=== PATIENT | female | born 1985 | race Caucasian/White ===

== ENCOUNTER 2017-09-23 23:50 | Emergency (ER) | payer OTHER ==
[2017-09-23 23:58] VITALS: BP 133/68; TEMP 98.5
[2017-09-24] MEDS ORDERED: IBUPROFEN 600 MG TAB PO STA (00:13)
[2017-09-24] MEDS ORDERED: IPRATROPIUM-ALBUTEROL 3 ML NEB INHALATION STA (00:13)
[2017-09-24] MEDS ORDERED: ACETAMINOPHEN TAB 325 MG TAB PO STA (00:13)
[2017-09-24 00:31] VITALS: RESP 18
--- NOTE | 2017-09-24 00:51 | XR ---
EXAM: XR Chest, 2 Views CLINICAL HISTORY: Reason: Pain TECHNIQUE: Frontal and lateral views of the chest. COMPARISON: No relevant prior studies available. FINDINGS: Lungs: Unremarkable. No consolidation. Pleural space: Unremarkable. No pneumothorax. Heart: Unremarkable. No cardiomegaly. Mediastinum: Unremarkable. Bones/joints: Unremarkable. IMPRESSION: Normal chest x-rays.
[2017-09-24 00:53] VITALS: PULSE 76
--- NOTE | 2017-09-24 00:58 | ED ---
URI HPI - General Chief Complaint: Upper Respiratory Infection Stated Complaint: LASHA, headache Time Seen by Provider: 09/24/17 00:09 Source: patient Mode of arrival: ambulatory Limitations: no limitations - History of Present Illness Initial Comments: 32-year-old female patient presents to the emergency department today for evaluation of nasal congestion, sore throat, and cough that started 2 days ago. Patient states that today she she feels like her cough has worsened, she is experiencing some chest tightness and shortness of breath with this. She states she is coughing up yellow sputum. She is also reporting facial pressure and mild headache. She states that on the first day of her symptoms she did have a temperature of 101.3. She states she has not had a fever since that time. She states that she does smoke 5 cigarettes per day. She denies having the influenza vaccination. She denies any sick contacts. Patient denies any recent rash, chest pain, abdominal pain, nausea, vomiting, diarrhea, constipation, back pain, numbness, tingling, dizziness, weakness, hematuria, dysuria, urinary urgency, urinary frequency, headache, visual changes, or any other complaints. - Related Data Home Medications Medication Instructions Recorded Confirmed Docusate [Colace] 100 mg PO DAILY 09/20/14 09/20/14 Previous Rx's Medication Instructions Recorded Hydrocodone/Acetaminophen [[place] 1 each PO Q6HR PRN #20 tab 09/20/14 5-325] Penicillin V Potassium [Pen Vee K] 500 mg PO TID #40 tab 09/20/14 Albuterol Sulfate [Proair Hfa] 1 - 2 puff INHALATION Q6HR PRN #1 09/24/17 inhaler Allergies Allergy/AdvReac Type Severity Reaction Status Date / Time No Known Allergies Allergy Verified 09/23/17 23:58 Review of Systems ROS Statement: Those systems with pertinent positive or pertinent negative responses have been documented in the HPI. ROS Other: All systems not noted in ROS Statement are negative. Past Medical History Past Medical History: No Reported History Additional Past Medical History / Comment(s): constipation History of Any Multi-Drug Resistant Organisms: None Reported Past Surgical History: No Surgical Hx Reported Past Psychological History: Bipolar, Depression Smoking Status: Current every day smoker Past Alcohol Use History: None Reported Past Drug Use History: None Reported General Exam Limitations: no limitations General appearance: alert, in no apparent distress, other (Is a well-developed, well-nourished adult female patient in no acute distress. Vital signs upon presentation are temperature 98.5F, pulse 95, respirations 20, blood pressure 133/68, pulse ox 100% on room air.) Eye exam: Present: normal appearance, PERRL, EOMI. Absent: scleral icterus, conjunctival injection, periorbital swelling ENT exam: Present: normal exam, mucous membranes moist, TM's normal bilaterally , other (No tonsillar hypertrophy or tonsillar exudate noted.). Absent: normal oropharynx (Oropharyngeal erythema.) Neck exam: Present: normal inspection. Absent: tenderness, meningismus, lymphadenopathy Respiratory exam: Present: normal lung sounds bilaterally, wheezes (Mild expiratory wheeze in the left upper lobe posteriorly.), other (Respirations are even and unlabored. No accessory muscle use. ). Absent: respiratory distress, rales, rhonchi, stridor Cardiovascular Exam: Present: regular rate, normal rhythm, normal heart sounds. Absent: systolic murmur, diastolic murmur, rubs, gallop, clicks Neurological exam: Present: alert, oriented X3, CN II-XII intact Psychiatric exam: Present: normal affect, normal mood Skin exam: Present: warm, dry, intact, normal color. Absent: rash Course Vital Signs 09/23/17 09/24/17 09/24/17 23:54 00:30 00:49 Temperature 98.5 F Pulse Rate 95 76 Respiratory 20 18 Rate Blood Pressure 133/68 O2 Sat by Pulse 100 Oximetry 09/24/17 00:59 Temperature Pulse Rate 76 Respiratory Rate Blood Pressure O2 Sat by Pulse Oximetry Medical Decision Making - Medical Decision Making 32-year-old female patient presented to the emergency department today for complaints of upper respiratory symptoms and cough. Physical examination did reveal mild expiratory wheeze in the left upper lobe posteriorly. Physical exam was otherwise unremarkable. Patient did undergo chest x-ray which was clear and showed no acute cardiopulmonary process. Influenza test was negative. Patient did receive ibuprofen and Tylenol here in the department as well as a DuoNeb breathing treatment. She states that her symptoms are improved. I did give her a ProAir inhaler for home. I did explain to her that her symptoms are most likely viral in nature. She is counseled regarding smoking cessation. She'll be given the next 1-2 days off of work. She is instructed to follow-up with her primary care physician for recheck in 1-2 days. She is instructed to return here immediately for any new, worsening, or concerning symptoms. She verbalizes understanding and agrees with this plan. - Lab Data Lab Results 09/24/17 Range/Units 00:30 Influenza Type A RNA Not Detected (Not Detectd) Influenza Type B (PCR) Not Detected (Not Detectd) - Radiology Data Radiology results: report reviewed, image reviewed Two-view x-ray of the chest shows that the lungs are unremarkable with no consolidation. Pleural spaces unremarkable with no pneumothorax. Heart is unremarkable with no cardiomegaly. Mediastinum is unremarkable and bones and joints are unremarkable. Impression by Dr. Browning shows normal chest x-ray. Disposition Clinical Impression: Viral upper respiratory illness Disposition: HOME SELF-CARE Condition: Good Instructions: Upper Respiratory Infection (ED) Additional Instructions: Increase fluids. Use [id number] nasal decongestants and cough medications as needed. Take ibuprofen or Tylenol as needed for pain control. Follow-up with her primary care physician for recheck in 1-2 days. Return here immediately for any new, worsening, or concerning symptoms. Prescriptions: Albuterol Sulfate [Proair Hfa] 1 - 2 puff INHALATION Q6HR PRN #1 inhaler PRN Reason: Shortness Of Breath Referrals: Grant Fan MD [Primary Care Provider] - 1-2 days Time of Disposition: 01:02
== END 2017-09-24 01:05 | disposition home or self-care (01) ==
LOC: EC 23:50
DX: J06.9 Acute upper respiratory infection, unspecified (principal); R05 Cough; F17.200 Nicotine dependence, unspecified, uncomplicated; Z79.899 Other long term (current) drug therapy
CPT/HCPCS: 71020; 87502; 94640; 99284

== ENCOUNTER 2023-06-11 08:48 | Inpatient (IN) | payer MEDICAID, OTHER ==
--- NOTE | 2023-06-11 09:12 | ED ---
Psych HPI - General Chief Complaint: Psychiatric Symptoms Stated Complaint: mental health Time Seen by Provider: 06/11/23 08:54 Source: patient, RN notes reviewed Mode of arrival: ambulatory Limitations: no limitations - History of Present Illness Initial Comments: 37-year-old female presents emergency department for psychiatric evaluation. Patient states she is depressed, suicidal. Patient does see a counselor at [facility] is on multiple medications for her history. Patient is found with a knife this morning during to harm herself. Patient has meant marijuana use no other illicit drug use denies any alcohol abuse. Patient states she's been taking her medications are not helping her. Patient denies any physical complaints. - Related Data Home Medications Medication Instructions Recorded Confirmed Montelukast [Singulair] 10 mg PO DAILY 06/11/23 06/11/23 Omeprazole [PriLOSEC] 40 mg PO DAILY 06/11/23 06/11/23 QUEtiapine [SEROquel] 25 mg PO DAILY 06/11/23 06/11/23 Denise's Wort 300 mg PO DAILY 06/11/23 06/11/23 Venlafaxine HCl ER [Effexor Xr] 150 mg PO DAILY 06/11/23 06/11/23 busPIRone HCL [Buspirone HCl] 10 mg PO TID 06/11/23 06/11/23 clonazePAM [KlonoPIN] 0.5 mg PO TID PRN 06/11/23 06/11/23 Allergies Allergy/AdvReac Type Severity Reaction Status Date / Time latex Allergy Rash/Hives Verified 06/11/23 13:23 Review of Systems ROS Statement: Those systems with pertinent positive or pertinent negative responses have been documented in the HPI. ROS Other: All systems not noted in ROS Statement are negative. Past Medical History Past Medical History: No Reported History Additional Past Medical History / Comment(s): constipation History of Any Multi-Drug Resistant Organisms: None Reported Past Surgical History: No Surgical Hx Reported Past Psychological History: Bipolar, Depression Smoking Status: Current every day smoker Past Alcohol Use History: None Reported Past Drug Use History: Marijuana General Exam Limitations: no limitations General appearance: alert, in no apparent distress Head exam: Present: atraumatic, normocephalic, normal inspection Eye exam: Present: normal appearance, PERRL, EOMI. Absent: scleral icterus, conjunctival injection, periorbital swelling ENT exam: Present: normal exam, mucous membranes moist Neck exam: Present: normal inspection, full ROM. Absent: tenderness, meningismus, lymphadenopathy Respiratory exam: Present: normal lung sounds bilaterally. Absent: respiratory distress, wheezes, rales, rhonchi, stridor Cardiovascular Exam: Present: regular rate, normal rhythm, normal heart sounds. Absent: systolic murmur, diastolic murmur, rubs, gallop, clicks Neurological exam: Present: alert Psychiatric exam: Present: depressed, flat affect Course Vital Signs 06/11/23 08:48 Temperature 97.9 F Pulse Rate 54 L Respiratory 18 Rate Blood Pressure 135/89 O2 Sat by Pulse 100 Oximetry Medical Decision Making - Medical Decision Making Was pt. sent in by a medical professional or institution (LYDNON Lopez, HEAD CD REACTOR OPERATOR, urgent care, hospital, or halfway...) When possible be specific @ -No Did you speak to anyone other than the patient for history (EMS, parent, family, police, friend...)? What history was obtained from this source @ -No Did you review nursing and triage notes (agree or disagree)? Why? @ -I reviewed and agree with nursing and triage notes Were old charts reviewed (outside hosp., previous admission, EMS record, old EKG, old radiological studies, urgent care reports/EKG's, halfway records)? Report findings @ -No old charts were reviewed Differential Diagnosis (chest pain, altered mental status, abdominal pain women, abdominal pain men, vaginal bleeding, weakness, fever, dyspnea, syncope, headache, dizziness, GI bleed, back pain, seizure, CVA, palpatations, mental health, musculoskeletal)? @ -Depression, suicidal ideation, anxiety EKG interpreted by me (3pts min.). @ -None X-rays interpreted by me (1pt min.). @ -None done CT interpreted by me (1pt min.). @ -None done U/S interpreted by me (1pt. min.). @ -None done What testing was considered but not performed or refused? (CT, X-rays, U/S, labs)? Why? @ -None What meds were considered but not given or refused? Why? @ -None Did you discuss the management of the patient with other professionals (professionals i.e. LYNDON Lopez, HEAD CD REACTOR OPERATOR, lab, RT, psych nurse, psychologist social, account support associate, teacher, deck officer, case operator)? Give summary @ -EPS, psychiatrists evaluated the patient recommend inpatient treatment Was smoking cessation discussed for >3mins.? @ -No Was critical care preformed (if so, how long)? @ -No Were there social determinants of health that impacted care today? How? (Homelessness, low income, unemployed, alcoholism, drug addiction, transportation, low edu. Level, literacy, decrease access to med. care, [facility], rehab)? @ -No Was there de-escalation of care discussed even if they declined (Discuss DNR or withdrawal of care, Hospice)? DNR status @ -No What co-morbidities impacted this encounter? (DM, HTN, Smoking, COPD, CAD, Cancer, CVA, ARF, Chemo, Hep., AIDS, mental health diagnosis, sleep apnea, morbid obesity)? @ -None Was patient admitted / discharged? Hospital course, mention meds given and route, prescriptions, significant lab abnormalities, going to OR and other pertinent info. @ -Admitted to [facility] for psychiatric treatment Undiagnosed new problem with uncertain prognosis? @ -No Drug Therapy requiring intensive monitoring for toxicity (Heparin, Nitro, Insulin, Cardizem)? @ -No Were any procedures done? @ -No Diagnosis/symptom? @ -Depression, suicidal ideation Acute, or Chronic, or Acute on Chronic? @ -Acute Uncomplicated (without systemic symptoms) or Complicated (systemic symptoms)? @ -complicated Side effects of treatment? @ -No Exacerbation, Progression, or Severe Exacerbation? @ -No Poses a threat to life or bodily function? How? (Chest pain, USA, MD, pneumonia, PE, COPD, DKA, ARF, appy, cholecystitis, CVA, Diverticulitis, Homicidal, Suicidal, threat to staff... and all critical care pts) @ -[Yes patient is suicidal - Lab Data Lab Results 06/11/23 06/11/23 Range/Units 10:10 10:40 Urine Opiates Screen Not Detected (NotDetected) Ur Oxycodone Screen Not Detected (NotDetected) Urine Methadone Screen Not Detected (NotDetected) Ur Propoxyphene Screen Not Detected (NotDetected) Ur Barbiturates Screen Not Detected (NotDetected) U Tricyclic Antidepress Not Detected (NotDetected) Ur Phencyclidine Scrn Not Detected (NotDetected) Ur Amphetamines Screen Not Detected (NotDetected) U Methamphetamines Scrn Not Detected (NotDetected) U Benzodiazepines Scrn Not Detected (NotDetected) Urine Cocaine Screen Not Detected (NotDetected) U Marijuana (THC) Screen Detected H (NotDetected) Coronavirus (PCR) Not Detected (Not Detectd) Disposition Clinical Impression: Depression, Suicidal ideation Disposition: TRANSFER TO PSYCH HOSP/UNIT Referrals: Grant Fan MD [Primary Care Provider] - 1-2 days Time of Disposition: 13:02
[2023-06-11 11:11] LABS: Amphetamine Screen,Urine Not Detected (NotDetected); Barbiturate Screen,Urine Not Detected (NotDetected); Benzodiazepines Screen,Urine Not Detected (NotDetected); Cocaine Screen,Urine Not Detected (NotDetected); Methadone Screen, Urine Not Detected (NotDetected); Opiate Screen,Urine Not Detected (NotDetected); Oxycodone Screen, Urine Not Detected (NotDetected); Phencyclidine Screen,Urine Not Detected (NotDetected); Tricyclic Antidepressant,Urine Not Detected (NotDetected); Urn Cannabinoid Scrn Detected (NotDetected)
[2023-06-11] MEDS ORDERED: LORazepam 2 MG/ML INJ IM PRN (14:00)
[2023-06-11] MEDS ORDERED: ACETAMINOPHEN TAB 325 MG TAB PO PRN (14:00)
[2023-06-11] MEDS ORDERED: MAGNESIUM HYDROXIDE 2,400 MG/30 ML CUP PO PRN (14:00)
[2023-06-11] MEDS ORDERED: IBUPROFEN 600 MG TAB PO PRN (14:00)
[2023-06-11] MEDS ORDERED: LORazepam 1 MG TAB PO PRN (14:00)
[2023-06-11] MEDS ORDERED: MAG HYDROX/AL HYDROX/SIMETH 30 ML CUP PO PRN (14:00)
[2023-06-11] MEDS: busPIRone HCl 10 MG TAB PO SCH ×2 (16:36→20:07)
[2023-06-11] MEDS: NICOTINE 14MG/24HR PATCH TRANSDERM SCH (16:37)
--- NOTE | 2023-06-11 18:45 | P.CONS ---
History of Present Illness - Reason for Consult Consult date: 06/11/23 Medical management Requesting physician: Nik Pemberton - Chief Complaint Depressed - History of Present Illness This is a 37-year-old patient off also Dr. Fan. Patient has a known history of depression and anxiety. Alternate has been getting more depressed. Somewhat restless. Does not sleep well. Appetite has gone down. Patient does follow up at [facility]. Patient's front up a knife 100 this morning with some plans to harm himself. She is a smoker does marijuana. Lives with . Has 2 children 5 and 8 years of age. Relationship at home is good. Review of systems: GEN.: Tired EYES: None HEENT: None NECK: None RESPIRATORY: Cough and wheezing CARDIOVASCULAR: None GASTROINTESTINAL: None GENITOURINARY: None MUSCULOSKELETAL: None LYMPHATICS: None HEMATOLOGICAL: None PSYCHIATRY: Anxious NEUROLOGICAL: Trouble sleeping Past medical history to include: Asthma, GERD, thyroid, some constipation, bipolar, schizoaffective disorder. Social history: Lives with . 2 children 5 and 8 years of age. Heavy alcohol use from age of [age]. . Does at least one joint of marijuana a day. Smokes a pack a day. Not employed Physical examination: VITAL SIGNS: 97.1, 63, 16, 150/70, 97% room air GENERAL: BMI 40, declining but awake slightly anxious. EYES: Pupils equal. Conjunctiva normal. HEENT: External appearance of nose and ears normal, oral cavity grossly normal. NECK: JVD not raised; masses not palpable. HEART: First and second heart sounds are normal; no edema. LUNGS: Respiratory rate increased, decreased breath with some wheezing. ABDOMEN: Soft, nontender, liver spleen not palpable, no masses palpable. PSYCH: Alert and oriented x3; mood and affect anxiousl. MUSCULOSKELETAL:No Clubbing/cyanosis;muscles-grossly intact NEUROLOGICAL: Cranial nerves grossly intact; no facial asymmetry, power and sensation grossly intact. LYMPHATICS: No lymph nodes palpable in the axilla and neck INVESTIGATIONS, reviewed in the clinical context: Urine drug screen positive for marijuana COVID-19 PCR: Not detected Assessment and plan: -Bipolar disorder with major depression episode Medications to be further adjusted by psychiatry -Insomnia due to underlying depression and anxiety. Change in medications were held for the same -Chronic nicotine dependence cigarette smoker Nicotine patch 21 -Marijuana use recreational -Morbid obesity BMI 40 Weight loss measures -GERD Prilosec 40 -Asthma exacerbation, secondary to smoking Albuterol 2 puffs 4 times a day. Advair 1 puff daily -Hypothyroid Synthroid 200 g Care was discussed with the patient. Thank you Past Medical History Past Medical History: Asthma, GERD/Reflux, Thyroid Disorder Additional Past Medical History / Comment(s): constipation, hypothyroid, History of Any Multi-Drug Resistant Organisms: None Reported Past Surgical History: No Surgical Hx Reported Additional Past Surgical History / Comment(s): 13 teeth removed in 2018 Past Anesthesia/Blood Transfusion Reactions: No Reported Reaction Past Psychological History: Anxiety, Bipolar, Depression, Panic Disorder, Schizoaffective Disorder Smoking Status: Current every day smoker Past Alcohol Use History: None Reported Additional Past Alcohol Use History / Comment(s): Heavy alcohol use from age 18- 22, reported 2 pints/day. Sober since age 22. Past Drug Use History: Marijuana - Past Family History Father History Unknown: Yes Medications and Allergies Home Medications Medication Instructions Recorded Confirmed Type Albuterol Sulfate [Albuterol 2 puff INHALATION Q6HR PRN 06/11/23 06/11/23 History Sulfate Hfa] Cetirizine HCl [Zyrtec] 10 mg PO DAILY 06/11/23 06/11/23 History Fluticasone Propion/Salmeterol 1 puff INHALATION DAILY 06/11/23 06/11/23 History [Advair 100-50 Diskus] Ibuprofen [Motrin] 800 mg PO Q8H PRN 06/11/23 06/11/23 History Levothyroxine Sodium [Synthroid] 200 mcg PO DAILY 06/11/23 06/11/23 History Montelukast [Singulair] 10 mg PO HS 06/11/23 06/11/23 History Omeprazole [PriLOSEC] 40 mg PO DAILY 06/11/23 06/11/23 History QUEtiapine [SEROquel] 25 mg PO HS 06/11/23 06/11/23 History Denise's Wort 300 mg PO DAILY 06/11/23 06/11/23 History Tiotropium 18 Mcg/Puff [Spiriva] 1 puff INHALATION DAILY 06/11/23 06/11/23 History Venlafaxine HCl ER [Effexor Xr] 150 mg PO DAILY 06/11/23 06/11/23 History busPIRone HCL [Buspirone HCl] 10 mg PO TID 06/11/23 06/11/23 History clonazePAM [KlonoPIN] 0.5 mg PO TID PRN 06/11/23 06/11/23 History Allergies Allergy/AdvReac Type Severity Reaction Status Date / Time latex Allergy Rash/Hives Verified 06/11/23 13:23 Physical Exam Vitals: Vital Signs Temp Pulse Pulse Resp BP BP Pulse Ox 06/11/23 15:03 97.1 F L 63 16 150/70 97 06/11/23 08:48 97.9 F 54 L 18 135/89 100 Intake and Output 06/11/23 06/11/23 06/11/23 06:59 14:59 22:59 Other: Weight 140.16 kg 130 kg Results Labs: Abnormal Lab Results - Last 24 Hours (Table) 06/11/23 Range/Units 10:40 U Marijuana (THC) Screen Detected H (NotDetected)
[2023-06-11] MEDS: QUEtiapine 25 MG TAB PO SCH (20:07)
[2023-06-12] MEDS: MONTELUKAST 10 MG TAB PO SCH (08:52)
[2023-06-12] MEDS: busPIRone HCl 10 MG TAB PO SCH ×3 (08:52→23:11)
[2023-06-12] MEDS: PANTOPRAZOLE 40 MG TABLET PO SCH (08:52)
[2023-06-12] MEDS ORDERED: VENLAFAXINE HCL ER 150 MG CAP PO SCH (09:00)
[2023-06-12 09:34] LABS: ALT 37 U/L (4-34); AST 34 U/L (14-36); African American GFR (CKD) >90 (>60 ml/min/1.73 sqM); Albumin 3.8 g/dL (3.5-5.0); Alkaline Phosphatase 95 U/L (38-126); Anion Gap 7 mmol/L; Blood Urea Nitrogen 5 mg/dL (7-17); Calcium 9.2 mg/dL (8.4-10.2); Carbon Dioxide 29 mmol/L (22-30); Chloride 104 mmol/L (98-107); Glucose 140 mg/dL (74-99); Non-African American GFR(CKD) >90 (>60 ml/min/1.73 sqM); Potassium 4.2 mmol/L (3.5-5.1); Sodium 140 mmol/L (137-145); Total Bilirubin 0.8 mg/dL (0.2-1.3); Total Protein 7.2 g/dL (6.3-8.2)
[2023-06-12] MEDS: NICOTINE 14MG/24HR PATCH TRANSDERM SCH (09:34)
[2023-06-12 09:43] LABS: Basophils % (A) 1 %; Eosinophils # (A) 0.2 k/uL (0-0.7); Eosinophils % (A) 3 %; HCT 46.8 % (34.0-46.0); HGB 15.7 gm/dL (11.4-16.0); Lymphocytes # (A) 2.4 k/uL (1.0-4.8); Lymphocytes % (A) 39 %; MCHC 33.6 g/dL (31.0-37.0); MCV 98.3 fL (80.0-100.0); Mean Platelet Volume 10.5; Monocytes # (A) 0.4 k/uL (0-1.0); Monocytes % (A) 7 %; Neutrophils # (A) 3.1 k/uL (1.3-7.7); Neutrophils % (A) 49 %; Platelet Count 257 k/uL (150-450); RBC 4.76 m/uL (3.80-5.40); RDW 12.4 % (11.5-15.5); WBC 6.3 k/uL (3.8-10.6)
[2023-06-12] MEDS ORDERED: clonazePAM 0.5 MG TAB PO PRN (11:21)
[2023-06-12] MEDS ORDERED: ALBUTEROL HFA INHALER INHALATION PRN (11:21)
[2023-06-12] MEDS ORDERED: LEVOTHYROXINE 100 MCG TAB PO SCH ×2 (11:27→11:30)
[2023-06-12] MEDS: TIOTROPIUM 2.5 MCG INHALER (MHU) INHALATION SCH (12:05)
[2023-06-12] MEDS: LORATADINE 10 MG TAB PO SCH (12:06)
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
[2023-06-12] MEDS ORDERED: predniSONE 20 MG TAB PO STA (14:23)
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
[2023-06-12] MEDS: IPRATROPIUM-ALBUTEROL 3 ML NEB INHALATION SCH ×2 (14:45→20:15)
[2023-06-12 16:02] LABS: Chol/HDL Ratio 4.11 Ratio; LDL Cholesterol,Calculated 78.3 mg/dL (0.0-131.0); VLDL Calculation 19.26 mg/dL (5.00-40.00)
[2023-06-12] MEDS: BUDESONIDE 1 MG/2 ML NEBU INHALATION SCH (20:15)
[2023-06-12] MEDS: QUEtiapine 25 MG TAB PO SCH (23:11)
[2023-06-12] MEDS: traZODone HCL 50 MG TAB PO SCH (23:11)
[2023-06-13] MEDS ORDERED: LEVOTHYROXINE 75 MCG TAB PO SCH ×2 (06:30)
[2023-06-13] MEDS: LEVOTHYROXINE 88 MCG TAB PO SCH (06:38)
[2023-06-13] MEDS: MONTELUKAST 10 MG TAB PO SCH (09:02)
[2023-06-13] MEDS: PANTOPRAZOLE 40 MG TABLET PO SCH (09:02)
[2023-06-13] MEDS: LORATADINE 10 MG TAB PO SCH (09:03)
[2023-06-13] MEDS: VENLAFAXINE HCL ER 75 MG CAP PO SCH (09:03)
[2023-06-13] MEDS: busPIRone HCl 10 MG TAB PO SCH ×3 (09:03→22:56)
[2023-06-13] MEDS: NICOTINE 14MG/24HR PATCH TRANSDERM SCH (09:06)
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
[2023-06-13] MEDS: IPRATROPIUM-ALBUTEROL 3 ML NEB INHALATION SCH ×2 (11:36→12:18)
[2023-06-13] MEDS: BUDESONIDE 1 MG/2 ML NEBU INHALATION SCH (11:37)
[2023-06-13] MEDS: TIOTROPIUM 2.5 MCG INHALER (MHU) INHALATION SCH (11:39)
--- NOTE | 2023-06-13 13:47 | P.PN ---
Progress Note - Text Progress Note Date: 06/13/23 - Chief Complaint Depressed Hospital course This is a 37-year-old patient off also Dr. Fan. Patient has a known history of depression and anxiety. Alternate has been getting more depressed. Somewhat restless. Does not sleep well. Appetite has gone down. Patient does follow up at [facility]. Patient's front up a knife 100 this morning with some plans to harm himself. She is a smoker does marijuana. Lives with . Has 2 children 5 and 8 years of age. Relationship at home is good. 06/12/2023: Patient slept better last night. Still got a cough some wheezing. No bit better. Appetite fair. Less depressed and anxious. Didn't ambulate. 06/13/2023: Patient is given extra bronchodilators and 1 dose of prednisone yesterday for asthma exacerbation. Feeling much better today. Staff felt. Eating better today. We'll much better. Ambulating well. Active Medications Acetaminophen (Acetaminophen Tab 325 Mg Tab) 650 mg PO Q4HR PRN PRN Reason: Mild Pain (Scale 1 to 3) Al Hydroxide/Mg Hydroxide (Mag Hydrox/Al Hydrox/Simeth 30 Ml Cup) 30 ml PO Q4HR PRN PRN Reason: GI Upset Albuterol Sulfate (Albuterol Hfa Inhaler) 2 puff INHALATION RT-Q6H PRN PRN Reason: Shortness Of Breath Buspirone HCl (Buspirone Hcl 10 Mg Tab) 20 mg PO TID [facility] Last Admin: 06/13/23 09:03 Dose: 20 mg Clonazepam (Clonazepam 0.5 Mg Tab) 0.5 mg PO TID PRN PRN Reason: Anxiety Ibuprofen (Ibuprofen 600 Mg Tab) 600 mg PO Q6HR PRN PRN Reason: Moderate Pain (Scale 4 to 6) Levothyroxine Sodium (Levothyroxine 88 Mcg Tab) 176 mcg PO DAILY@0630 [facility] Last Admin: 06/13/23 06:38 Dose: 176 mcg Loratadine (Loratadine 10 Mg Tab) 10 mg PO DAILY [facility] Last Admin: 06/13/23 09:03 Dose: 10 mg Lorazepam (Lorazepam 2 Mg/Ml Inj) 1 mg IM Q6HR PRN PRN Reason: Agitation or Acute Anxiety Magnesium Hydroxide (Magnesium Hydroxide 2,400 Mg/30 Ml Cup) 2,400 mg PO DAILY PRN PRN Reason: Constipation Montelukast Sodium (Montelukast 10 Mg Tab) 10 mg PO DAILY [facility] Last Admin: 06/13/23 09:02 Dose: 10 mg Nicotine (Nicotine 14mg/24hr Patch) 1 patch TRANSDERM DAILY [facility] Last Admin: 06/13/23 09:06 Dose: Not Given Pantoprazole Sodium (Pantoprazole 40 Mg Tablet) 40 mg PO AC-BRKFST [facility] Last Admin: 06/13/23 09:02 Dose: 40 mg Quetiapine Fumarate (Quetiapine 25 Mg Tab) 25 mg PO [facility] Last Admin: 06/12/23 23:11 Dose: 25 mg Tiotropium [place] (Tiotropium 2.5 Mcg Inhaler (Mhu)) 2 puff INHALATION RT- DAILY [facility] Last Admin: 06/13/23 11:39 Dose: 2 puff Trazodone HCl (Trazodone Hcl 50 Mg Tab) 25 mg PO [facility] Last Admin: 06/12/23 23:11 Dose: 25 mg Venlafaxine HCl (Venlafaxine Hcl Er 75 Mg Cap) 225 mg PO DAILY [facility] Last Admin: 06/13/23 09:03 Dose: 225 mg Past medical history to include: Asthma, GERD, thyroid, some constipation, bipolar, schizoaffective disorder. Social history: Lives with . 2 children 5 and 8 years of age. Heavy alcohol use from age of [age]. . Does at least one joint of marijuana a day. Smokes a pack a day. Not employed Physical examination: VITAL SIGNS: 98.1, 79, 15, 129/83, 96% room air GENERAL: Comfortable EYES: Pupils equal. Conjunctiva normal. HEENT: External appearance of nose and ears normal, oral cavity grossly normal. NECK: JVD not raised; masses not palpable. HEART: First and second heart sounds are normal; no edema. LUNGS: Respiratory rate normal, improved air entry ABDOMEN: Soft, nontender, liver spleen not palpable, no masses palpable. PSYCH: Alert and oriented x3; mood and affect better INVESTIGATIONS, reviewed in the clinical context: June 12: White count 6.3 hemoglobin 15.7 platelets 257 potassium 4.2 BUN 5 creatinine 0.6 TSH 0.095 Urine drug screen positive for marijuana COVID-19 PCR: Not detected Assessment and plan: -Depressive disorder unspecified, rule out bipolar depression BuSpar, Klonopin, Ativan, Seroquel, trazodone, Effexor XR -Insomnia due to underlying depression and anxiety. Reproductive change in medications -Chronic nicotine dependence cigarette smoker Nicotine patch 21 -Marijuana use recreational -Morbid obesity BMI 40 Weight loss measures -GERD Prilosec 40 -Acute Asthma exacerbation, secondary to smoking: Better DuoNeb 3 times a day for 24 hours Albuterol 2 puffs 4 times a day. Advair 1 puff daily. 1 dose of prednisone 40 given -Hypothyroid, with low TSH.. Cutback Synthroid to 175 g a day. Doing better. Continue current medications. Thank you
[2023-06-13] MEDS: QUEtiapine 25 MG TAB PO SCH (22:56)
[2023-06-13] MEDS: traZODone HCL 50 MG TAB PO SCH (22:56)
[2023-06-14] MEDS: LEVOTHYROXINE 88 MCG TAB PO SCH (06:19)
[2023-06-14] MEDS: PANTOPRAZOLE 40 MG TABLET PO SCH (08:03)
[2023-06-14] MEDS: TIOTROPIUM 2.5 MCG INHALER (MHU) INHALATION SCH (08:04)
[2023-06-14] MEDS: LORATADINE 10 MG TAB PO SCH (08:04)
[2023-06-14] MEDS: VENLAFAXINE HCL ER 75 MG CAP PO SCH (08:04)
[2023-06-14] MEDS: busPIRone HCl 10 MG TAB PO SCH ×3 (08:04→23:00)
[2023-06-14] MEDS: MONTELUKAST 10 MG TAB PO SCH (08:04)
[2023-06-14] MEDS: NICOTINE 14MG/24HR PATCH TRANSDERM SCH (08:07)
--- NOTE | 2023-06-14 08:54 | P.PN ---
Progress Note - Text Progress Note Date: 06/14/23 Interval history: Patient was seen today taking part in the group today and doing a puzzle with another patient and was agreeable to speak with documentation writer in the office. Patient claims that she is doing a bit better todfay, she states that her mood and anxiety is improving. She claims that the medications have been helping thus far, states that he was able to get about 8 or 9 hours last night of sleep. States that she has bee going to groups and participate and also states that she has been talking to her over the phone. At this time she is denying any changes in her appetite, denying any auditory or visual hallucinations. Denying any suicidal or homicidal ideations intent or plan. Patient has been compliant with medications and not reporting any side effects. Mental status examination: General Appearance: Patient appears to be taller, overweight, several tattoos, short hair, stated age is alert, directable, and attempts to cooperate. Patient appears to have improving hygiene and grooming. Behavior: Patient is seated without any agitated behavior.. Speech: Patient's speech is fluent and nonpressured, improving mildly Mood/Affect: Patient reports their mood is depressed and anxious, improving mildly, affect is congruent Suicidality/Homicidality: Patient denies having any homicidal ideation intent or plan. Denies any suicidal ideations intent or plan Perceptions: Patient denies any visual hallucinations and denies any auditory hallucinations Though content/process: There is no evidence of any delusional thought content and thought process is linear and goal-directed. Memory and concentration: AOX3, grossly intact for the purposes of this session Judgment and insight: Improving mildly IMPRESSIONS: Depressive disorder unspecified, rule out bipolar depression PTSD Cannabis use disorder Nicotine dependence PLAN: -Patient is admitted under voluntary status to MHU for stabilization of psychiatric symptoms and safety. Patient has signed adult voluntary form and medication consent and is placed in patient's chart. -Medications : continue Effexor 225 mg daily for mood/anxiety, continue Seroquel 25 mg daily at bedtime for mood stabilization/insomnia, trazodone 25 mg daily at bedtime for insomnia/mood, BuSpar 20 mg 3 times a day for anxiety. Continue with Klonopin 3 times a day when necessary for anxiety. -Klonopin and Haldol PRN for agitation/aggression -NRT - nicotine patch -SW on board for discharge planning. Encourage patient to participate in groups to work on coping skills. likely discharge back home tomorrow, Sw to call and check for safety in the house, no guns or weapons.
[2023-06-14] MEDS: traZODone HCL 50 MG TAB PO SCH (23:00)
[2023-06-14] MEDS: QUEtiapine 25 MG TAB PO SCH (23:00)
[2023-06-15] MEDS: LEVOTHYROXINE 88 MCG TAB PO SCH (07:00)
[2023-06-15] MEDS: PANTOPRAZOLE 40 MG TABLET PO SCH (08:28)
[2023-06-15] MEDS: LORATADINE 10 MG TAB PO SCH (08:28)
[2023-06-15] MEDS: VENLAFAXINE HCL ER 75 MG CAP PO SCH (08:28)
[2023-06-15] MEDS: busPIRone HCl 10 MG TAB PO SCH (08:28)
[2023-06-15] MEDS: NICOTINE 14MG/24HR PATCH TRANSDERM SCH (08:29)
[2023-06-15] MEDS: MONTELUKAST 10 MG TAB PO SCH (08:29)
[2023-06-15] MEDS: TIOTROPIUM 2.5 MCG INHALER (MHU) INHALATION SCH (08:29)
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
[2023-06-15 10:48] VITALS: BP 116/71; PULSE 102; RESP 16; TEMP 98.4
== END 2023-06-15 12:15 | disposition home or self-care (01) | DRG 754 ==
LOC: EC 08:48 → 3MHU 13:58
PROVIDERS: ADMIT Psychiatry & Neurology Psychiatry; ATTEND Psychiatry & Neurology Psychiatry
DX: F32.A Depression, unspecified (principal); R45.851 Suicidal ideations; Z20.822 Contact with and (suspected) exposure to COVID-19; F17.210 Nicotine dependence, cigarettes, uncomplicated; F41.9 Anxiety disorder, unspecified; R45.1 Restlessness and agitation; J45.909 Unspecified asthma, uncomplicated; K21.9 Gastro-esophageal reflux disease without esophagitis; F25.9 Schizoaffective disorder, unspecified; F51.05 Insomnia due to other mental disorder; E66.01 Morbid (severe) obesity due to excess calories; Z68.41 Body mass index [BMI] 40.0-44.9, adult; J45.901 Unspecified asthma with (acute) exacerbation; E03.9 Hypothyroidism, unspecified; G47.00 Insomnia, unspecified; F43.10 Post-traumatic stress disorder, unspecified; F12.10 Cannabis abuse, uncomplicated; F41.0 Panic disorder [episodic paroxysmal anxiety]; F10.11 Alcohol abuse, in remission; Z79.899 Other long term (current) drug therapy; Z91.040 Latex allergy status; Z56.0 Unemployment, unspecified; Z79.890 Hormone replacement therapy; Z91.410 Personal history of adult physical and sexual abuse; Z91.419 Personal history of unspecified adult abuse
CPT/HCPCS: 80053; 80061; 80306; 82075; 83036; 84443; 85025; 87635; 94640; 99285

== ENCOUNTER 2024-02-15 22:32 | Observation (INO) | payer OTHER ==
--- NOTE | 2024-02-15 22:52 | ED ---
Abdominal Pain HPI - General Chief Complaint: Abdominal Pain Stated Complaint: Abdominal Pain, Gall Stones Time Seen by Provider: 02/15/24 22:39 Source: patient Mode of arrival: ambulatory Limitations: no limitations - History of Present Illness Initial Comments: this patient is a 38-year-old woman who presents to have evaluation for right upper quadrant abdominal pain. The patient states that the symptoms have been going on intermittently approximately 1 month. She notes that symptoms tend to get worse when she eats. Patient went for an ultrasound at [facility] this morning and was told that she had a gallstone. She states the pain has been a little more constant today. She does have associated nausea. She has not noted fever or chills. No change in urination. No change in bowel movements. MD Complaint: abdominal pain Onset/Timin -: month(s) Location: RUQ Radiation: none Migration to: no migration Severity: moderate Quality: aching Consistency: intermittent Improves With: nothing Worsens With: eating Associated Symptoms: nausea - Related Data Home Medications Medication Instructions Recorded Confirmed Cetirizine HCl [Zyrtec] 10 mg PO DAILY 06/11/23 06/11/23 Fluticasone Propion/Salmeterol 1 puff INHALATION DAILY 06/11/23 06/11/23 [Advair 100-50 Diskus] Montelukast [Singulair] 10 mg PO HS 06/11/23 06/11/23 Omeprazole [PriLOSEC] 40 mg PO DAILY 06/11/23 06/11/23 Previous Rx's Medication Instructions Recorded Levothyroxine Sodium [Synthroid] 75 mcg PO DAILY@0630 #30 tab 06/12/23 Levothyroxine Sodium [Synthroid] 100 mcg PO DAILY@0630 #30 tab 06/12/23 Albuterol Sulfate [Albuterol 2 puff INHALATION Q6HR PRN 30 Days 06/15/23 Sulfate Hfa] #1 each Ibuprofen [Motrin] 600 mg PO Q6HR PRN tab 06/15/23 Nicotine 14Mg/24Hr Patch [Habitrol] 1 patch TRANSDERM DAILY 14 Days 06/15/23 #14 patch QUEtiapine [SEROquel] 25 mg PO HS 30 Days #30 tab 06/15/23 Tiotropium 18 Mcg/Puff [Spiriva] 1 puff INHALATION DAILY 30 Days #1 06/15/23 each Venlafaxine HCl [Effexor XR] 225 mg PO DAILY 30 Days #30 tab 06/15/23 busPIRone HCl [Buspar] 20 mg PO TID 30 Days #180 tab 06/15/23 traZODone HCL [Desyrel] 25 mg PO HS 30 Days #15 tab 06/15/23 Allergies Allergy/AdvReac Type Severity Reaction Status Date / Time latex Allergy Rash/Hives Verified 02/15/24 22:35 Review of Systems ROS Statement: Those systems with pertinent positive or pertinent negative responses have been documented in the HPI. ROS Other: All systems not noted in ROS Statement are negative. Constitutional: Denies: fever, chills Respiratory: Denies: cough, dyspnea Cardiovascular: Denies: chest pain, palpitations, edema Gastrointestinal: Reports: abdominal pain, nausea. Denies: vomiting, diarrhea, constipation, melena, hematochezia Genitourinary: Denies: dysuria, frequency, hematuria, abnormal menses Musculoskeletal: Denies: back pain Skin: Denies: rash Neurological: Denies: headache, weakness Past Medical History Past Medical History: Asthma, GERD/Reflux, Thyroid Disorder Additional Past Medical History / Comment(s): constipation, hypothyroid, History of Any Multi-Drug Resistant Organisms: None Reported Past Surgical History: No Surgical Hx Reported Additional Past Surgical History / Comment(s): 13 teeth removed in 2018 Past Anesthesia/Blood Transfusion Reactions: No Reported Reaction Past Psychological History: Anxiety, Bipolar, Depression, Panic Disorder, Schizoaffective Disorder Smoking Status: Current every day smoker Past Alcohol Use History: None Reported Past Drug Use History: Marijuana - Past Family History Father History Unknown: Yes General Exam Limitations: no limitations General appearance: alert, in no apparent distress Head exam: Present: atraumatic, normocephalic Eye exam: Present: normal appearance. Absent: scleral icterus, conjunctival injection ENT exam: Present: normal oropharynx Neck exam: Present: normal inspection Respiratory exam: Present: normal lung sounds bilaterally. Absent: respiratory distress, wheezes, rales, rhonchi, stridor, accessory muscle use Cardiovascular Exam: Present: regular rate, normal rhythm, normal heart sounds. Absent: systolic murmur, diastolic murmur, rubs, gallop GI/Abdominal exam: Present: soft, tenderness. Absent: distended, guarding, rebound, rigid, mass, pulsatile mass Extremities exam: Present: normal inspection, normal capillary refill. Absent: pedal edema, calf tenderness Back exam: Present: normal inspection. Absent: CVA tenderness (R), CVA tenderness (L) Neurological exam: Present: alert Skin exam: Present: warm, dry, intact, normal color. Absent: rash Course Vital Signs 02/15/24 02/15/24 02/16/24 22:33 23:40 00:00 Temperature 97.4 F L Pulse Rate 75 Pulse Rate [ Pulse Oximetery ] Respiratory 18 12 12 Rate Blood Pressure 128/89 Blood Pressure [Supine] O2 Sat by Pulse 98 Oximetry 02/16/24 02/16/24 02/16/24 00:33 02:20 04:32 Temperature 97.6 F 98.3 F Pulse Rate 75 65 69 Pulse Rate [ Pulse Oximetery ] Respiratory 14 24 14 Rate Blood Pressure 112/75 109/70 130/70 Blood Pressure [Supine] O2 Sat by Pulse 95 95 96 Oximetry 02/16/24 04:52 Temperature 97.4 F L Pulse Rate Pulse Rate [ 77 Pulse Oximetery ] Respiratory 20 Rate Blood Pressure Blood Pressure 119/68 [Supine] O2 Sat by Pulse 97 Oximetry Medical Decision Making - Lab Data Result diagrams: 02/15/24 23:07 02/15/24 23:07 Lab Results 02/15/24 02/15/24 02/15/24 Range/Units 23:07 23:07 23:07 WBC 7.8 (3.8-10.6) k/uL RBC 4.29 (3.80-5.40) m/uL Hgb 13.9 (11.4-16.0) gm/dL Hct 41.3 (34.0-46.0) % MCV 96.4 (80.0-100.0) fL MCH 32.4 (25.0-35.0) pg MCHC 33.6 (31.0-37.0) g/dL RDW 12.6 (11.5-15.5) % Plt Count 240 (150-450) k/uL MPV 9.9 Neutrophils % 56 % Lymphocytes % 34 % Monocytes % 7 % Eosinophils % 0 % Basophils % 0 % Neutrophils # 4.4 (1.3-7.7) k/uL Lymphocytes # 2.6 (1.0-4.8) k/uL Monocytes # 0.6 (0-1.0) k/uL Eosinophils # 0.0 (0-0.7) k/uL Basophils # 0.0 (0-0.2) k/uL Sodium 139 (137-145) mmol/L Potassium 4.4 (3.5-5.1) mmol/L Chloride 105 (98-107) mmol/L Carbon Dioxide 31 H (22-30) mmol/L Anion Gap 3 mmol/L BUN 11 (7-17) mg/dL Creatinine 0.67 (0.52-1.04) mg/dL Est GFR (CKD-EPI)AfAm >90 (>60 ml/min/1.73 sqM) Est GFR (CKD-EPI)NonAf >90 (>60 ml/min/1.73 sqM) Glucose 131 H (74-99) mg/dL Plasma Lactic Acid Darren 1.1 (0.7-2.0) mmol/L Calcium 9.0 (8.4-10.2) mg/dL Total Bilirubin 0.5 (0.2-1.3) mg/dL AST 24 (14-36) U/L ALT 29 (4-34) U/L Alkaline Phosphatase 97 (38-126) U/L Total Protein 6.6 (6.3-8.2) g/dL Albumin 3.6 (3.5-5.0) g/dL Amylase 37 (30-110) U/L Lipase 83 (23-300) U/L Urine Color Urine Appearance (Clear) Urine pH (5.0-8.0) Ur Specific [place] (1.001-1.035) Urine Protein (Negative) Urine Glucose (UA) (Negative) Urine Ketones (Negative) Urine Blood (Negative) Urine Nitrite (Negative) Urine Bilirubin (Negative) Urine Urobilinogen (<2.0) mg/dL Ur Leukocyte Esterase (Negative) Urine HCG, Qual (Not Detectd) 02/16/24 02/16/24 Range/Units 00:12 00:12 WBC (3.8-10.6) k/uL RBC (3.80-5.40) m/uL Hgb (11.4-16.0) gm/dL Hct (34.0-46.0) % MCV (80.0-100.0) fL MCH (25.0-35.0) pg MCHC (31.0-37.0) g/dL RDW (11.5-15.5) % Plt Count (150-450) k/uL MPV Neutrophils % % Lymphocytes % % Monocytes % % Eosinophils % % Basophils % % Neutrophils # (1.3-7.7) k/uL Lymphocytes # (1.0-4.8) k/uL Monocytes # (0-1.0) k/uL Eosinophils # (0-0.7) k/uL Basophils # (0-0.2) k/uL Sodium (137-145) mmol/L Potassium (3.5-5.1) mmol/L Chloride (98-107) mmol/L Carbon Dioxide (22-30) mmol/L Anion Gap mmol/L BUN (7-17) mg/dL Creatinine (0.52-1.04) mg/dL Est GFR (CKD-EPI)AfAm (>60 ml/min/1.73 sqM) Est GFR (CKD-EPI)NonAf (>60 ml/min/1.73 sqM) Glucose (74-99) mg/dL Plasma Lactic Acid Darren (0.7-2.0) mmol/L Calcium (8.4-10.2) mg/dL Total Bilirubin (0.2-1.3) mg/dL AST (14-36) U/L ALT (4-34) U/L Alkaline Phosphatase (38-126) U/L Total Protein (6.3-8.2) g/dL Albumin (3.5-5.0) g/dL Amylase (30-110) U/L Lipase (23-300) U/L Urine Color Yellow Urine Appearance Clear (Clear) Urine pH 6.0 (5.0-8.0) Ur Specific [place] 1.026 (1.001-1.035) Urine Protein Negative (Negative) Urine Glucose (UA) Negative (Negative) Urine Ketones Negative (Negative) Urine Blood Negative (Negative) Urine Nitrite Negative (Negative) Urine Bilirubin Negative (Negative) Urine Urobilinogen <2.0 (<2.0) mg/dL Ur Leukocyte Esterase Negative (Negative) Urine HCG, Qual Not Detected (Not Detectd) Disposition Clinical Impression: Abdominal pain, Cholecystitis Disposition: ADMITTED IP TO THIS HOSP Condition: Good Is patient prescribed a controlled substance at d/c from ED?: No
[2024-02-15] MEDS: SODIUM CHLORIDE 0.9% 1,000 ML IV STA (23:04)
[2024-02-15] MEDS: HYDROmorphone 1 MG/ML 1 ML SYRINGE IVP STA (23:12)
[2024-02-15 23:33] LABS: Basophils % (A) 0 %; Eosinophils % (A) 0 %; HCT 41.3 % (34.0-46.0); HGB 13.9 gm/dL (11.4-16.0); Lymphocytes # (A) 2.6 k/uL (1.0-4.8); Lymphocytes % (A) 34 %; MCH 32.4 pg (25.0-35.0); MCHC 33.6 g/dL (31.0-37.0); MCV 96.4 fL (80.0-100.0); Mean Platelet Volume 9.9; Monocytes # (A) 0.6 k/uL (0-1.0); Monocytes % (A) 7 %; Neutrophils # (A) 4.4 k/uL (1.3-7.7); Neutrophils % (A) 56 %; Platelet Count 240 k/uL (150-450); RBC 4.29 m/uL (3.80-5.40); RDW 12.6 % (11.5-15.5); WBC 7.8 k/uL (3.8-10.6)
[2024-02-15 23:54] LABS: ALT 29 U/L (4-34); AST 24 U/L (14-36); African American GFR (CKD) >90 (>60 ml/min/1.73 sqM); Albumin 3.6 g/dL (3.5-5.0); Alkaline Phosphatase 97 U/L (38-126); Amylase 37 U/L (30-110); Anion Gap 3 mmol/L; Blood Urea Nitrogen 11 mg/dL (7-17); Carbon Dioxide 31 mmol/L (22-30); Chloride 105 mmol/L (98-107); Glucose 131 mg/dL (74-99); Lipase 83 U/L (23-300); Non-African American GFR(CKD) >90 (>60 ml/min/1.73 sqM); Potassium 4.4 mmol/L (3.5-5.1); Sodium 139 mmol/L (137-145); Total Bilirubin 0.5 mg/dL (0.2-1.3); Total Protein 6.6 g/dL (6.3-8.2)
[2024-02-16 01:07] LABS: Appearance,Urine Clear (Clear); Bilirubin,Urine Negative (Negative); Blood,Urine Negative (Negative); Color,Urine Yellow; Glucose,Urine (UA) Negative (Negative); Ketones,Urine Negative (Negative); Leukocyte Esterase,Urine Negative (Negative); Nitrite,Urine Negative (Negative); Protein,Urine Negative (Negative); Specific Gravity,Urine 1.026 (1.001-1.035); Urobilinogen,Urine <2.0 mg/dL (<2.0)
--- NOTE | 2024-02-16 01:47 | CT ---
EXAMINATION TYPE: CT abdomen pelvis w con DATE OF EXAM: 02/16/2024 HISTORY: Right upper abdominal pain. Patient states she had a US today of her gallbladder and she has a gallstone CT DLP: 2892.6mGycm Automated Exposure Control for Dose Reduction was Utilized. CONTRAST: CT scan of the abdomen and pelvis is performed with IV Contrast, patient injected with 100 mL of Isov ue 300. COMPARISON: None. FINDINGS: LUNG BASES: No significant abnormality is appreciated. LIVER/GB: Liver is diffusely low dense consistent with fatty infiltrative hepatocellular disease. Sug gestion of some edematous wall thickening in the gallbladder. No biliary dilatation. PANCREAS: No significant abnormality is seen. SPLEEN: No significant abnormality is seen. ADRENALS: No significant abnormality is seen. KIDNEYS: No significant abnormality is seen. BOWEL: No significant abnormality is seen. UTERUS/ADNEXA: No gross abnormality seen. LYMPH NODES: No greater than 1cm abdominal or pelvic lymph nodes are appreciated. OSSEOUS STRUCTURES: Moderate disc space narrowing at L4-L5 and L5-S1 levels. OTHER: No significant additional abnormality is seen. IMPRESSION: Suspect some edematous wall thickening of the gallbladder. Acute cholecystitis needs to b e considered based on CT and patient's symptoms.
[2024-02-16] MEDS ORDERED: NALOXONE 0.4 MG/ML 1 ML VIAL IV PRN (04:05)
[2024-02-16] MEDS ORDERED: HYDROmorphone 0.5 MG/0.5 ML SYRINGE IVP PRN (04:05)
[2024-02-16] MEDS: HYDROmorphone 0.5 MG/0.5 ML SYRINGE IVP STA (04:12)
[2024-02-16] MEDS: SODIUM CHLORIDE 0.9% 1,000 ML IV SCH (04:16)
[2024-02-16] MEDS: PIPERACILLIN-TAZOBACTAM 3.375 GM in SODIUM CHLORIDE 0.9% 100 ML IVPB STA (04:22)
[2024-02-16] MEDS: PANTOPRAZOLE 40 MG/10 ML VIAL IV SCH (09:35)
[2024-02-16] MEDS: PIPERACILLIN-TAZOBACTAM 3.375 GM in SODIUM CHLORIDE 0.9% 100 ML IVPB SCH (12:25)
[2024-02-16] MEDS: LEVOTHYROXINE 88 MCG TAB PO SCH (12:25)
[2024-02-16] MEDS ORDERED: METOPROLOL TARTRATE 5 MG/5 ML VIAL IVP ONE (16:10)
[2024-02-16] MEDS ORDERED: fentaNYL (PF) 50 MCG/ML 2 ML AMP ONE (16:10)
[2024-02-16] MEDS ORDERED: PROPOFOL 10 MG/ML 20 ML VIAL IV ONE (16:10)
[2024-02-16] MEDS ORDERED: SUCCINYLCHOLINE CHLORIDE 200 MG/10 ML VIAL IV ONE (16:10)
[2024-02-16] MEDS ORDERED: hydrALAZINE HCL 20 MG/ML 1 ML VIAL ONE (16:10)
[2024-02-16] MEDS ORDERED: MIDAZOLAM 2 MG/2 ML VIAL ONE (16:10)
[2024-02-16] MEDS ORDERED: ONDANSETRON 4 MG/2 ML VIAL ONE (16:10)
[2024-02-16] MEDS ORDERED: GLYCOPYRROLATE 0.2 MG/ML 2 ML VIAL ONE (16:10)
[2024-02-16] MEDS ORDERED: NEOSTIGMINE 1 MG/ML 10 ML VIAL ONE (16:10)
[2024-02-16] MEDS ORDERED: ROCURONIUM 10 MG/ML (5 ML VIAL) IV ONE (16:10)
[2024-02-16] MEDS ORDERED: LIDOCAINE 1% INJ 10MG/ML (20 ML MDV) ONE (16:10)
[2024-02-16] MEDS: SODIUM CHLORIDE 0.9% 1,000 ML IV ONE (16:10)
[2024-02-16] MEDS: LIDOCAINE 2%-EPI 1:100,000 20 ML VIAL SQ ONE ×2 (16:29→16:41)
[2024-02-16] MEDS: droPERidol 5 MG/2 ML VIAL IVP ONE (18:05)
[2024-02-16] MEDS: LACTATED RINGERS 1,000 ML IV ONE ×2 (18:17→18:46)
--- NOTE | 2024-02-16 18:47 | P.GSHP ---
History of Present Illness H&P Date: 02/16/24 Chief Complaint: abdominal pain patient is a 38-year-old female presenting with several days of abdominal pain that is worse with food and is better on its own. Patient complains of right upper quadrant pain that radiates to the back and shoulder with associated nausea and vomiting. Patient denies fever chills shortness breath or chest pain - EENT Ears, nose, mouth and throat: Denies dysphagia, Denies epistaxis, Denies nasal discharge - Cardiovascular Cardiovascular: Denies chest pain, Denies claudication, Denies dyspnea on exertion - Respiratory Respiratory: Denies congestion, Denies cough, Denies dyspnea - Gastrointestinal Gastrointestinal: Reports as per HPI - Genitourinary (Female) Genitourinary: Reports as per HPI - Musculoskeletal Musculoskeletal: Denies arm numbness/tingling, Denies leg numbness/tingling Past Medical History Past Medical History: Asthma, GERD/Reflux, Thyroid Disorder Additional Past Medical History / Comment(s): constipation, hypothyroid, History of Any Multi-Drug Resistant Organisms: None Reported Past Surgical History: No Surgical Hx Reported Additional Past Surgical History / Comment(s): 13 teeth removed in 2018 Past Anesthesia/Blood Transfusion Reactions: No Reported Reaction Past Psychological History: Anxiety, Bipolar, Depression, Panic Disorder, Schizoaffective Disorder Smoking Status: Current every day smoker Past Alcohol Use History: None Reported Past Drug Use History: Marijuana - Past Family History Father History Unknown: Yes Medications and Allergies Home Medications Medication Instructions Recorded Confirmed Type Cetirizine HCl [Zyrtec] 10 mg PO DAILY 06/11/23 02/16/24 History Montelukast [Singulair] 10 mg PO HS 06/11/23 02/16/24 History Omeprazole [PriLOSEC] 40 mg PO DAILY 06/11/23 02/16/24 History Venlafaxine HCl [Effexor XR] 225 mg PO DAILY 30 Days #30 tab 06/15/23 02/16/24 Rx Albuterol Sulfate [Albuterol 2 puff INHALATION RT-Q6H PRN 02/16/24 02/16/24 History Sulfate Hfa] Fluticasone Nasal [place] [Flonase 1 spr EA NOSTRIL DAILY PRN 02/16/24 02/16/24 History Nasal [place]] Levothyroxine Sodium [Synthroid] 175 mcg PO DAILY 02/16/24 02/16/24 History QUEtiapine [SEROquel] 100 mg PO BID 02/16/24 02/16/24 History busPIRone HCl [Buspar] 10 mg PO BID 02/16/24 02/16/24 History clonazePAM [KlonoPIN] 1 mg PO BID PRN 02/16/24 02/16/24 History traZODone HCL 100 mg PO HS 02/16/24 02/16/24 History Allergies Allergy/AdvReac Type Severity Reaction Status Date / Time latex Allergy Rash/Hives Verified 02/16/24 10:28 Surgical - Exam Osteopathic Statement: *. No significant issues noted on an osteopathic structural exam other than those noted in the History and Physical/Consult. Vital Signs Temp Pulse Resp BP Pulse Ox 97.4 F L 75 18 128/89 98 02/15/24 22:33 02/15/24 22:33 02/15/24 22:33 02/15/24 22:33 02/15/24 22:33 - General well developed - Eyes PERRL - Neck no masses, no lymphadectomy - Respiratory normal expansion - Cardiovascular Rhythm: regular Heart Sounds: normal: S1, S2 - Abdomen Abdomen: soft, tender Results - Labs 02/15/24 23:07 02/15/24 23:07 Abnormal Lab Results - Last 24 Hours (Table) 02/15/24 Range/Units 23:07 Carbon Dioxide 31 H (22-30) mmol/L Glucose 131 H (74-99) mg/dL Diabetes panel 02/15/24 Range/Units 23:07 Sodium 139 (137-145) mmol/L Potassium 4.4 (3.5-5.1) mmol/L Chloride 105 (98-107) mmol/L Carbon Dioxide 31 H (22-30) mmol/L BUN 11 (7-17) mg/dL Creatinine 0.67 (0.52-1.04) mg/dL Glucose 131 H (74-99) mg/dL Calcium 9.0 (8.4-10.2) mg/dL AST 24 (14-36) U/L ALT 29 (4-34) U/L Alkaline Phosphatase 97 (38-126) U/L Total Protein 6.6 (6.3-8.2) g/dL Albumin 3.6 (3.5-5.0) g/dL Calcium panel 02/15/24 Range/Units 23:07 Calcium 9.0 (8.4-10.2) mg/dL Albumin 3.6 (3.5-5.0) g/dL Pituitary panel 02/15/24 Range/Units 23:07 Sodium 139 (137-145) mmol/L Potassium 4.4 (3.5-5.1) mmol/L Chloride 105 (98-107) mmol/L Carbon Dioxide 31 H (22-30) mmol/L BUN 11 (7-17) mg/dL Creatinine 0.67 (0.52-1.04) mg/dL Glucose 131 H (74-99) mg/dL Calcium 9.0 (8.4-10.2) mg/dL Adrenal panel 02/15/24 Range/Units 23:07 Sodium 139 (137-145) mmol/L Potassium 4.4 (3.5-5.1) mmol/L Chloride 105 (98-107) mmol/L Carbon Dioxide 31 H (22-30) mmol/L BUN 11 (7-17) mg/dL Creatinine 0.67 (0.52-1.04) mg/dL Glucose 131 H (74-99) mg/dL Calcium 9.0 (8.4-10.2) mg/dL Total Bilirubin 0.5 (0.2-1.3) mg/dL AST 24 (14-36) U/L ALT 29 (4-34) U/L Alkaline Phosphatase 97 (38-126) U/L Total Protein 6.6 (6.3-8.2) g/dL Albumin 3.6 (3.5-5.0) g/dL Assessment and Plan Assessment: 38 yo female w/ abdominal pain CT/US demonstrates gallstones -npo -OR today -abx -pain meds
--- NOTE | 2024-02-16 19:57 | P.OP ---
Date of Procedure: 02/16/24 Preoperative Diagnosis: acute cholecystitis Postoperative Diagnosis: acute cholecystitis Procedure(s) Performed: robotic-assisted cholecystectomy Surgeon: Severiano Bermudez Estimated Blood Loss (ml): 20 Operative Findings: Edematous inflamed gallbladder Description of Procedure: patient with resident operating room where she was cleaned and draped in sterile fashion atenolol was performed and everyone agreed with the information sided next incision was made in the left lower quadrant and a 5 mm Visiport was then used to gain access the abdomen. 3 more 8 mm ports were placed in the mid and right abdomen and the initial 5 mm port was replaced with an 8 mm port the robot was undocked the gallbladder was identified and lifted up cephalad and retracted laterally I dissected from lateral to medial using electrocautery first identifying the cystic duct and then the cystic artery with the help of NICK Jimenez. Once these structures were identified and the critical view of safety was identified I doubly clipped the cystic duct proximally and 1 distally and did the same with the cystic artery and was ligated using electrocautery. Electrocautery was then used to remove the gallbladder off of the gallbladder fossa. This was placed in a Endo Catch bag and removed out of the left upper quadrant port. The incisions were then closed using 4-0 Monocryl suture in a [id number] fashion.
[2024-02-16] MEDS: ONDANSETRON 4 MG/2 ML VIAL IVP PRN (20:51)
[2024-02-16] MEDS: HYDROmorphone 1 MG/ML 1 ML SYRINGE IVP PRN (22:56)
[2024-02-17] MEDS: PROCHLORPERAZINE INJ 10 MG/2 ML VIAL IVP STA (04:00)
[2024-02-17] MEDS: INDOCYANINE GREEN 25 MG VIAL IV STA (08:20)
[2024-02-17 08:29] VITALS: BP 106/73; PULSE 58; RESP 18; TEMP 98.1
--- NOTE | 2024-02-17 12:32 | P.DS ---
Providers Date of admission: 02/16/24 04:08 Expected date of discharge: 02/17/24 Attending physician: Ignacio Suarez Primary care physician: [facility] Course: 38-year-old female underwent laparoscopic cholecystectomy yesterday by Dr. Bermudez. Patient doing well today. Had some nausea last night. Tolerating diet now however. Has no pain currently. She would like to go home. Will plan discharge. Follow-up as outpatient. Patient Condition at Discharge: Good Plan - Discharge Summary Discharge Rx Participant: No New Discharge Prescriptions: No Action Omeprazole [PriLOSEC] 40 mg PO DAILY Cetirizine HCl [Zyrtec] 10 mg PO DAILY traZODone HCL 100 mg PO HS clonazePAM [KlonoPIN] 1 mg PO BID PRN PRN Reason: Anxiety Levothyroxine Sodium [Synthroid] 175 mcg PO DAILY Albuterol Sulfate [Albuterol Sulfate Hfa] 2 puff INHALATION RT-Q6H PRN PRN Reason: Shortness Of Breath busPIRone HCl [Buspar] 10 mg PO BID Montelukast [Singulair] 10 mg PO HS Venlafaxine HCl [Effexor XR] 225 mg PO DAILY 30 Days #30 tab QUEtiapine [SEROquel] 100 mg PO BID Fluticasone Nasal [place] [Flonase Nasal [place]] 1 spr EA NOSTRIL DAILY PRN PRN Reason: Allergy Symptoms Discharge Medication List Cetirizine HCl [Zyrtec] 10 mg PO DAILY 06/11/23 [History] Montelukast [Singulair] 10 mg PO HS 06/11/23 [History] Omeprazole [PriLOSEC] 40 mg PO DAILY 06/11/23 [History] Venlafaxine HCl [Effexor XR] 225 mg PO DAILY 30 Days #30 tab 06/15/23 [Rx] Albuterol Sulfate [Albuterol Sulfate Hfa] 2 puff INHALATION RT-Q6H PRN 02/16/24 [History] Fluticasone Nasal [place] [Flonase Nasal [place]] 1 spr EA NOSTRIL DAILY PRN 02/16/24 [History] Levothyroxine Sodium [Synthroid] 175 mcg PO DAILY 02/16/24 [History] QUEtiapine [SEROquel] 100 mg PO BID 02/16/24 [History] busPIRone HCl [Buspar] 10 mg PO BID 02/16/24 [History] clonazePAM [KlonoPIN] 1 mg PO BID PRN 02/16/24 [History] traZODone HCL 100 mg PO HS 02/16/24 [History] Follow up Appointment(s)/Referral(s): Grant Fan MD [Primary Care Provider] - 1-2 days
[2024-02-17] MEDS: ACETAMINOPHEN TAB 325 MG TAB PO PRN (12:58)
== END 2024-02-17 13:34 | disposition home or self-care (01) ==
LOC: EC 22:32 → INTOOBSV 02-16 04:08 → 4SSUR 02-16 04:08
PROVIDERS: ADMIT Surgery; ATTEND Surgery
DX: K80.12 Calculus of gallbladder with acute and chronic cholecystitis without obstruction (principal); J45.909 Unspecified asthma, uncomplicated; G47.33 Obstructive sleep apnea (adult) (pediatric); E03.9 Hypothyroidism, unspecified; F41.9 Anxiety disorder, unspecified; F31.9 Bipolar disorder, unspecified; E66.01 Morbid (severe) obesity due to excess calories; Z68.41 Body mass index [BMI] 40.0-44.9, adult; F17.200 Nicotine dependence, unspecified, uncomplicated; Z79.890 Hormone replacement therapy; Z79.51 Long term (current) use of inhaled steroids; Z79.899 Other long term (current) drug therapy; Z91.040 Latex allergy status
CPT/HCPCS: 47562; S2900; 36415; 74177; 80053; 81003; 81025; 82150; 83605; 83690; 85025; 88304; 96361; 96374; 96375; 96376; 99285

== ENCOUNTER → 2025-05-11 | Outpatient (CLI) | payer OTHER ==
--- NOTE | 2025-05-25 08:01 | P.HOLTER ---
3-day Holter monitor shows sinus mechanism, heart rates ranged from 48-124 bpm 5 pauses longest for less than 2.3 seconds These are associated with second-degree AV block. These occurred during the daytime The blocked P wave is not preceded by sinus slowing nor is it preceded by [place] lengthening QRS is narrow During patient triggered events, no arrhythmias noted
--- NOTE | 2025-05-26 08:19 | HM ---
3-day Holter monitor shows sinus mechanism, heart rates ranged from 48-124 bpm 5 pauses longest for less than 2.3 seconds These are associated with second-degree AV block. These occurred during the daytime The blocked P wave is not preceded by sinus slowing nor is it preceded by [place] lengthening QRS is narrow During patient triggered events, no arrhythmias noted. MTDD
== END | disposition home or self-care (01) ==
LOC: RADECHMAIN 07:47
PROVIDERS: ATTEND Family Medicine
DX: I44.1 Atrioventricular block, second degree (principal); R00.0 Tachycardia, unspecified; R00.2 Palpitations
CPT/HCPCS: 93225

== ENCOUNTER → 2025-05-26 | Outpatient (CLI) | payer OTHER ==
--- NOTE | 2025-05-26 13:28 | CA ---
Exercise Stress Test Report Name: Beata Weiss Exam Date: 05/26/2025 11:39 Exam Location: [facility] Stress Ht (in): 70 Wt (lb): 274 BSA: 2.39 Ordering Phys: Dayton Huffman MD Referring Phys: CHRIS Technologist: HITESH Age: 39 Gender: F : 1985 Procedure CPT: Indications: R06.02 Shortness of breath R07.9 chest pain ICD-10 Codes: Patient History: CP, LASHA, PALPS, FAMILY HX, CURRENT TOB. Medications: EFFEXOR,,,, KLONAPIN,,,, BUSABAR,,,, SYNTHROID,,,, OMEPRAZOLE,,,, INHAILER,,, Meds past 24 hrs: Pretest Chest Pain: STRESS TEST King Protocol Exercise Duration (min:sec): 07:[address] Depressions (mm): Angina Score: Yadav Score: Resting HR (bpm): 88 Peak HR (bpm): 148 Resting BP (mmHg): 128 / 70 Peak BP (mmHg): 142 / 92 MPHR: 181 Target HR: 154 % MPHR: 82 METS: 8.9 Total Dose: Peak Dose: Atropine: Double Product: 94369 BP Response: Stress Termination: MAX EXERTION Stress Symptoms: DIZZINESS Stress Summary: ECG ANALYSIS Resting ECG: Stress ECG: CONCLUSIONS Normal exercise treadmill stress test Dr. Shiva Horton MD (Electronically Signed) Final Date: 26 May 2025 13:27
== END | disposition home or self-care (01) ==
LOC: RADNMMAIN 11:01
PROVIDERS: ATTEND Family Medicine
DX: R06.02 Shortness of breath (principal); R07.9 Chest pain, unspecified
CPT/HCPCS: 93017